=== PATIENT | male | born 1965 | race Caucasian/White ===

== ENCOUNTER 2020-11-04 17:00 | Inpatient (IN) | payer MEDICAID ==
[~2020-11-04] VITALS: Ht 167.6 cm; Wt 55.9 kg
[2020-11-04] MEDS ORDERED: ASPIRIN 325MG TABLET PO NR (17:30)
[2020-11-04 17:35] LABS: BASOPHILS % 0.3 % (0.0-2.0); EOSINOPHILS % 1.6 % (0.0-5.0); HEMATOCRIT. 42.5 % (42.0-52.0); HEMOGLOBIN. 14.5 g/dL (14.0-18.0); LYMPHOCYTES % 20.4 % (20.0-50.0); MEAN CORPUSCULAR HEMOGLOBIN 29.5 pg (28.0-32.0); MEAN CORPUSCULAR VOLUME 86.8 fL (80.0-94.0); MEAN PLATELET VOLUME 8.5 fl (7.4-10.4); MONOCYTES % 8.6 % (2.0-8.0); NEUTROPHILS % 69.1 % (40.0-76.0); PLATELET 211 x1000/uL (130-400); RED BLOOD CELL COUNT 4.89 mill/uL (4.7-6.1); RED CELL DISTRIBUTION WIDTH 13.2 % (11.6-14.6)
[2020-11-04 17:36] LABS: CHLORIDE 105 mEq/L (98-107)
[2020-11-04 17:38] LABS: INR 0.9
[2020-11-04 17:43] LABS: ETHANOL BLOOD < 10 mg/dL
[2020-11-04] MEDS ORDERED: IOHEXOL-350 100 ML BOTTLE ONE (18:58)
[2020-11-04] MEDS ORDERED: CLOPIDOGREL 75MG TABLET PO ONE (19:00)
[2020-11-04 19:54] LABS: CLARITY URINE CLEAR (CLEAR); COLOR URINE YELLOW (YELLOW); KETONES URINE NEGATIVE (NEGATIVE); LEUKOCYTE ESTERASE URINE NEGATIVE (NEGATIVE); NITRITE URINE NEGATIVE (NEGATIVE); OCCULT BLOOD URINE NEGATIVE (NEGATIVE); PH URINE 7.5 (4.5-8.0); PROTEIN URINE NEGATIVE (NEGATIVE); SPECIFIC GRAVITY URINE 1.049 (1.005-1.030); UROBILINOGEN URINE 0.2 E.U./dL (0.2-1.0)
[2020-11-04 20:09] LABS: *AMPHETAMINES SCREEN URINE NEGATIVE (NEGATIVE); *BARBITURATES SCREEN URINE NEGATIVE (NEGATIVE); *BENZODIAZEPINES SCREEN URINE NEGATIVE (NEGATIVE); *COCAINE SCREEN URINE NEGATIVE (NEGATIVE); METHADONE URINE SCREEN NEGATIVE (NEGATIVE); OPIATES URINE SCREEN NEGATIVE (NEGATIVE)
[2020-11-04 20:10] LABS: CANNABINOID URINE SCREEN NEGATIVE (NEGATIVE); PHENCYCLIDINE URINE SCREEN NEGATIVE (NEGATIVE)
[2020-11-04] MEDS ORDERED: ACETAMINOPHEN 325MG TABLET PO ONE (20:15)
[2020-11-04] MEDS ORDERED: ATORVASTATIN CALCIUM 40MG TABLET PO SCH (21:00)
[2020-11-04 23:00] VITALS: BP 134/95
[2020-11-05] VITALS: BP 134/95
[2020-11-05] MEDS ORDERED: IPRATROPIUM/ALBUTEROL 0.5-3(2.5)MG/3ML NEB NEB PRN (00:30)
[2020-11-05] MEDS ORDERED: ACETAMINOPHEN 325MG TABLET PO PRN (00:30)
[2020-11-05] MEDS ORDERED: HYDROCODONE/ACETAMINOPHEN 5/325MG TABLET PO PRN (00:30)
[2020-11-05] MEDS ORDERED: MAGNESIUM/ALUMINUM HYDROXIDE/SIMETHICONE 30ML UDC PO PRN (00:30)
[2020-11-05] MEDS ORDERED: CLONIDINE 0.1MG TABLET PO PRN (00:30)
[2020-11-05] MEDS ORDERED: DOCUSATE SODIUM 100MG CAPSULE PO PRN (00:30)
[2020-11-05] MEDS ORDERED: ONDANSETRON HCL 4MG/2ML INJ IV PRN (00:30)
[2020-11-05] MEDS ORDERED: PREDNISONE 20MG TABLET PO SCH (01:00)
[2020-11-05 04:00] VITALS: BP 180/95
[2020-11-05 05:00] VITALS: BP 117/92
[2020-11-05 06:21] LABS: CREATINE KINASE 61 IU/L (39-308)
[2020-11-05 06:23] LABS: CREATINE KINASE MB FRACTION 1.1 ng/mL (0.5-3.6)
[2020-11-05] MEDS ORDERED: AMLO10TA4 PO (08:08)
[2020-11-05] MEDS ORDERED: LOSA100T32 PO (08:08)
[2020-11-05] MEDS ORDERED: HEPARIN 5000 UNITS/ML VIAL SUBCUT SCH (09:00)
[2020-11-05] MEDS ORDERED: AMLODIPINE 10MG TABLET PO SCH (09:00)
[2020-11-05] MEDS ORDERED: FAMOTIDINE 20MG TABLET PO SCH (09:00)
[2020-11-05] MEDS ORDERED: ASPIRIN 81MG EC TABLET PO SCH (09:00)
== END 2020-11-05 08:25 | disposition left against medical advice (07) | DRG 48 ==
LOC: ER 17:00 → ENRESERV 21:56 → 8WST 23:24
PROVIDERS: ADMIT Internal Medicine; ATTEND Internal Medicine
DX: G51.0 Bell's palsy (principal); E11.65 Type 2 diabetes mellitus with hyperglycemia; E87.1 Hypo-osmolality and hyponatremia; I10 Essential (primary) hypertension
CPT/HCPCS: 36415; 70496; 71045; 80053; 80305; 80320; 81003; 82550; 82553; 82962; 83036; 83735; 84484; 85025; 93005; 99291; J7512; Q9967; G0480